=== PATIENT | female | born 1930 | race Caucasian/White ===

== ENCOUNTER 2016-06-14 09:14 | Inpatient (IN) | payer MEDICARE ==
[~2016-06-14] VITALS: Ht 165.1 cm; Wt 72.6 kg
[~2016-06-14 09:14] MED LIST: AMLO5TAB2 PO; APIX2.5T PO; ATOR10TA9 PO; LEVO100T5 PO; LEVO500T33 PO; LISI-170 PO; LISI5TAB7 PO; METO25TA35 PO; OMEP-110 PO; TEMA15CA6 PO
[2016-06-14] MEDS ORDERED: HYDROcodone/APAP 5/325 TABLET ONE (11:11)
[2016-06-14] MEDS ORDERED: SODIUM CHLORIDE 0.9% 1,000 ML IV ONE (11:12)
[2016-06-14] MEDS ORDERED: CEFAZOLIN PMX 1GM/50ML 50 ML IVPB ONE (11:30)
[2016-06-14] MEDS ORDERED: HYDROcodone/APAP 5/325 TABLET PO ONE ×2 (11:30)
[2016-06-14] MEDS ORDERED: SODIUM CHLORIDE FLUSH 10ML SYR IVF ONE (11:30)
[2016-06-14 12:13] LABS: BLOOD UREA NITROGEN 15 mg/dL (7-18)
[2016-06-14] MEDS ORDERED: CEFAZOLIN 1,000 MG ONE (13:12)
[2016-06-14] MEDS ORDERED: CEFAZOLIN PMX 1GM/50ML 50 ML ONE (13:13)
[2016-06-14] MEDS ORDERED: OMNIPAQUE 350 MG/ML, 100ML BOTTLE ONE ×2 (14:21)
[2016-06-14] MEDS ORDERED: ONDANSETRON ODT 4 MG PO PRN (14:30)
[2016-06-14] MEDS ORDERED: GUAIFENESIN/DM 200-20MG, 10ML UDC PO PRN (14:30)
[2016-06-14] MEDS ORDERED: LABETALOL 5MG/ML, 20ML IV PRN (14:30)
[2016-06-14] MEDS ORDERED: CEFAZOLIN PMX 2GM/100ML 100 ML IV SCH (15:00)
[2016-06-14 15:54] VITALS: BP 154/74
[2016-06-14] MEDS: CEFAZOLIN PMX 2GM/50ML 50 ML IV SCH (16:00)
[2016-06-14] MEDS: METOPROLOL TARTRATE 25 MG TABLET PO SCH (18:19)
[2016-06-14] MEDS: ATORVASTATIN 10 MG TABLET PO SCH (20:37)
[2016-06-14] MEDS: HYDROcodone/APAP 5/325 TABLET PO PRN (20:38)
[2016-06-14 20:51] VITALS: BP 154/69
[2016-06-15] MEDS: CEFAZOLIN PMX 2GM/50ML 50 ML IV SCH ×3 (00:39→18:03)
[2016-06-15 04:07] VITALS: BP 153/73
[2016-06-15 05:27] LABS: BLOOD UREA NITROGEN 14 mg/dL (7-18)
[2016-06-15 05:33] LABS: ASPARTATE AMINO TRANSFERASE 36 U/L (15-37)
[2016-06-15] MEDS: METOPROLOL TARTRATE 25 MG TABLET PO SCH ×3 (06:00→18:00)
[2016-06-15 06:35] VITALS: BP 155/73
[2016-06-15] MEDS: SENNA/DOCUSATE TABLET PO SCH (09:00)
[2016-06-15] MEDS: AMLODIPINE 5 MG TABLET PO SCH (10:07)
[2016-06-15] MEDS: LEVOTHYROXINE 100 MCG TABLET PO SCH (10:08)
[2016-06-15] MEDS: LISINOPRIL 20 MG TABLET PO SCH (10:08)
[2016-06-15 13:07] VITALS: BP 167/71
[2016-06-15] MEDS: D5%-0.9% NACL 1,000 ML IV SCH (13:16)
[2016-06-15] MEDS ORDERED: MORPHINE SULFATE 4 MG/ML, 1ML IVPush PRN (13:30)
[2016-06-15] MEDS ORDERED: FENTANYL PF 250 MCG/5ML ONE (15:23)
[2016-06-15] MEDS ORDERED: CEFAZOLIN 1,000 MG ONE (15:49)
[2016-06-15] MEDS ORDERED: ONDANSETRON 2MG/ML, 2ML ONE (15:49)
[2016-06-15] MEDS ORDERED: PROPOFOL 10 MG/ML, 20ML ONE (15:49)
[2016-06-15] MEDS ORDERED: DEXAMETHASONE 4 MG/ML, 1ML ONE (15:49)
[2016-06-15] MEDS ORDERED: BUPIVACAINE/PF-EPI 0.5% 1:200K ONE (16:23)
[2016-06-15] MEDS ORDERED: HYDROcodone/APAP 7.5-325MG/15ML UDC PO PRN (17:00)
[2016-06-15] MEDS ORDERED: LABETALOL 5MG/ML, 20ML IV PRN (17:00)
[2016-06-15] MEDS ORDERED: PROMETHAZINE 25 MG/ML, 1ML IV PRN (17:00)
[2016-06-15] MEDS ORDERED: EPHEDRINE 50 MG/ML, 1ML IVPush PRN (17:00)
[2016-06-15] MEDS ORDERED: ACETAMINOPHEN 325 MG TABLET PO PRN (17:00)
[2016-06-15] MEDS ORDERED: OXYcodone 5 MG/5 ML ORAL.SOL UDC PO PRN (17:00)
[2016-06-15] MEDS ORDERED: hydrALAzine 20 MG/ML, 1ML IV PRN (17:00)
[2016-06-15] MEDS ORDERED: ONDANSETRON 2MG/ML, 2ML IVPush PRN (17:00)
[2016-06-15 18:00] VITALS: BP 159/76
[2016-06-15 18:15] VITALS: BP 139/74
[2016-06-15] MEDS: HYDROcodone/APAP 5/325 TABLET PO PRN (18:15)
[2016-06-15] MEDS: ONDANSETRON 2MG/ML, 2ML IVP PRN (19:31)
[2016-06-15 19:43] VITALS: BP 123/69
[2016-06-15] MEDS: ATORVASTATIN 10 MG TABLET PO SCH (21:56)
[2016-06-16] MEDS: HYDROcodone/APAP 5/325 TABLET PO PRN ×3 (01:56→14:32)
[2016-06-16] MEDS: CEFAZOLIN PMX 2GM/50ML 50 ML IV SCH ×3 (01:59→17:51)
[2016-06-16 02:00] VITALS: BP 136/76
[2016-06-16] MEDS: METOPROLOL TARTRATE 25 MG TABLET PO SCH ×2 (05:47→17:51)
[2016-06-16] MEDS: LEVOTHYROXINE 100 MCG TABLET PO SCH (05:48)
[2016-06-16 06:37] LABS: ASPARTATE AMINO TRANSFERASE 20 U/L (15-37); BLOOD UREA NITROGEN 20 mg/dL (7-18)
[2016-06-16 07:15] VITALS: BP 158/70
[2016-06-16] MEDS: AMLODIPINE 5 MG TABLET PO SCH (08:28)
[2016-06-16] MEDS: D5%-0.9% NACL 1,000 ML IV SCH (08:28)
[2016-06-16] MEDS: SENNA/DOCUSATE TABLET PO SCH (08:29)
[2016-06-16] MEDS: LISINOPRIL 20 MG TABLET PO SCH (08:29)
[2016-06-16] MEDS: ONDANSETRON 2MG/ML, 2ML IVP PRN (10:24)
[2016-06-16 12:35] VITALS: BP 122/69
[2016-06-16 18:44] VITALS: BP 139/66
[2016-06-16] MEDS: DOXYCYCLINE 100MG TABLET PO SCH (22:19)
[2016-06-16] MEDS: ATORVASTATIN 10 MG TABLET PO SCH (22:19)
[2016-06-17 00:20] VITALS: BP 149/70
[2016-06-17] MEDS: HYDROcodone/APAP 5/325 TABLET PO PRN ×2 (01:11→23:57)
[2016-06-17] MEDS: DOXYCYCLINE 100MG TABLET PO SCH ×3 (01:11→22:22)
[2016-06-17] MEDS: ATORVASTATIN 10 MG TABLET PO SCH ×2 (01:11→22:22)
[2016-06-17] MEDS: LEVOTHYROXINE 100 MCG TABLET PO SCH (06:11)
[2016-06-17] MEDS: METOPROLOL TARTRATE 25 MG TABLET PO SCH ×2 (06:13→18:00)
[2016-06-17 06:33] LABS: ASPARTATE AMINO TRANSFERASE 16 U/L (15-37); BLOOD UREA NITROGEN 19 mg/dL (7-18)
[2016-06-17 07:02] VITALS: BP 122/66
[2016-06-17] MEDS ORDERED: FENTANYL PF 100 MCG/2ML ONE ×3 (09:25→17:31)
[2016-06-17] MEDS ORDERED: hydrALAzine 20 MG/ML, 1ML IV PRN ×2 (09:30→17:30)
[2016-06-17] MEDS ORDERED: HYDROcodone/APAP 7.5-325MG/15ML UDC PO PRN (09:30)
[2016-06-17] MEDS ORDERED: LABETALOL 5MG/ML, 20ML IV PRN ×2 (09:30→17:30)
[2016-06-17] MEDS ORDERED: FENTANYL PF 100 MCG/2ML IV PRN ×2 (09:30→17:30)
[2016-06-17] MEDS ORDERED: PROMETHAZINE 25 MG/ML, 1ML IV PRN ×2 (09:30→17:30)
[2016-06-17] MEDS ORDERED: OXYcodone 5 MG/5 ML ORAL.SOL UDC PO PRN ×2 (09:30→17:30)
[2016-06-17] MEDS ORDERED: HYDROmorphone 1 MG/ML, 1ML IV PRN ×2 (09:30→17:30)
[2016-06-17] MEDS ORDERED: EPHEDRINE 50 MG/ML, 1ML IVPush PRN ×2 (09:30→17:30)
[2016-06-17] MEDS ORDERED: ONDANSETRON 2MG/ML, 2ML IVPush PRN ×2 (09:30→17:30)
[2016-06-17] MEDS: LISINOPRIL 20 MG TABLET PO SCH (10:45)
[2016-06-17] MEDS: AMLODIPINE 5 MG TABLET PO SCH (10:45)
[2016-06-17] MEDS: SENNA/DOCUSATE TABLET PO SCH (10:45)
[2016-06-17 12:54] VITALS: BP 127/74
[2016-06-17] MEDS: ONDANSETRON 2MG/ML, 2ML IVP PRN (13:21)
[2016-06-17] MEDS ORDERED: BUPIVACAINE/PF-EPI 0.25% 1:200K ONE (15:36)
[2016-06-17] MEDS ORDERED: FENTANYL PF 250 MCG/5ML ONE (16:05)
[2016-06-17] MEDS ORDERED: ONDANSETRON 2MG/ML, 2ML ONE (16:07)
[2016-06-17] MEDS ORDERED: PHENYLEPHRINE 10 MG/ML ONE (16:07)
[2016-06-17] MEDS ORDERED: PROPOFOL 10 MG/ML, 20ML ONE (16:07)
[2016-06-17] MEDS ORDERED: HYDROmorphone 2 MG/ML, 1ML ONE (17:00)
[2016-06-17] MEDS: FENTANYL PF 100 MCG/2ML IV PRN ×3 (17:05→17:35)
[2016-06-17] MEDS: HYDROmorphone 1 MG/ML, 1ML IV PRN ×4 (17:05→17:48)
[2016-06-17] MEDS ORDERED: MEPERIDINE/PF 25MG/0.5ML IVPush PRN (17:30)
[2016-06-17] MEDS ORDERED: ACETAMINOPHEN 325 MG TABLET PO PRN (17:30)
[2016-06-17] MEDS ORDERED: METOPROLOL 1 MG/ML, 5ML IV PRN (17:30)
[2016-06-17] MEDS ORDERED: MIDAZOLAM 1 MG/ML, 2ML IV PRN (17:30)
[2016-06-18 04:15] VITALS: BP 132/71
[2016-06-18] MEDS: METOPROLOL TARTRATE 25 MG TABLET PO SCH ×2 (06:26→18:24)
[2016-06-18] MEDS: LEVOTHYROXINE 100 MCG TABLET PO SCH (06:26)
[2016-06-18 07:39] VITALS: BP 108/72
[2016-06-18] MEDS: DOXYCYCLINE 100MG TABLET PO SCH ×2 (09:24→20:30)
[2016-06-18] MEDS: LISINOPRIL 20 MG TABLET PO SCH (09:24)
[2016-06-18] MEDS: AMLODIPINE 5 MG TABLET PO SCH (09:24)
[2016-06-18] MEDS: SENNA/DOCUSATE TABLET PO SCH (09:24)
[2016-06-18 12:52] VITALS: BP 115/73
[2016-06-18] MEDS ORDERED: POLYETHYLENE GLYCOL 17 GM PACKET PO ONE (14:00)
[2016-06-18 19:39] VITALS: BP 130/81
[2016-06-18 19:46] VITALS: BP 126/71
[2016-06-18] MEDS: ATORVASTATIN 10 MG TABLET PO SCH (20:30)
[2016-06-18] MEDS: HYDROcodone/APAP 5/325 TABLET PO PRN (20:31)
[2016-06-19] MEDS: HYDROcodone/APAP 5/325 TABLET PO PRN ×3 (00:53→10:13)
[2016-06-19 02:07] VITALS: BP 134/70
[2016-06-19 05:39] VITALS: BP 147/62
[2016-06-19] MEDS: LEVOTHYROXINE 100 MCG TABLET PO SCH (05:42)
[2016-06-19] MEDS: METOPROLOL TARTRATE 25 MG TABLET PO SCH ×2 (05:42→18:07)
[2016-06-19 05:51] LABS: ASPARTATE AMINO TRANSFERASE 20 U/L (15-37); BLOOD UREA NITROGEN 26 mg/dL (7-18)
[2016-06-19 07:54] VITALS: BP 114/61
[2016-06-19] MEDS: AMLODIPINE 5 MG TABLET PO SCH (08:33)
[2016-06-19] MEDS: LISINOPRIL 20 MG TABLET PO SCH (08:33)
[2016-06-19] MEDS: SENNA/DOCUSATE TABLET PO SCH (08:33)
[2016-06-19] MEDS: POLYETHYLENE GLYCOL 17 GM PACKET PO PRN (08:33)
[2016-06-19] MEDS: DOXYCYCLINE 100MG TABLET PO SCH ×2 (08:33→23:07)
[2016-06-19 13:58] VITALS: BP 164/77
[2016-06-19 15:00] VITALS: BP 153/72
[2016-06-19] MEDS: MAGNESIUM HYDROXIDE 8%, 30ML UDC PO SCH (15:57)
[2016-06-19] MEDS ORDERED: SODIUM CHLORIDE 0.9%, 500ML IVBOLUS ONE (16:00)
[2016-06-19 20:00] VITALS: BP 170/82
[2016-06-19] MEDS: ATORVASTATIN 10 MG TABLET PO SCH (23:06)
[2016-06-20] VITALS: BP 150/71
[2016-06-20] MEDS: HYDROcodone/APAP 5/325 TABLET PO PRN ×3 (00:17→13:45)
[2016-06-20 05:05] LABS: BLOOD UREA NITROGEN 17 mg/dL (7-18)
[2016-06-20 06:15] VITALS: BP 155/77
[2016-06-20] MEDS: METOPROLOL TARTRATE 25 MG TABLET PO SCH ×2 (06:16→17:03)
[2016-06-20] MEDS: LEVOTHYROXINE 100 MCG TABLET PO SCH (06:16)
[2016-06-20 07:30] VITALS: BP 164/75
[2016-06-20] MEDS: MAGNESIUM HYDROXIDE 8%, 30ML UDC PO SCH (08:02)
[2016-06-20] MEDS: SENNA/DOCUSATE TABLET PO SCH (08:02)
[2016-06-20] MEDS: AMLODIPINE 5 MG TABLET PO SCH (08:02)
[2016-06-20] MEDS: DOXYCYCLINE 100MG TABLET PO SCH ×2 (08:02→20:02)
[2016-06-20] MEDS: LISINOPRIL 20 MG TABLET PO SCH (08:02)
[2016-06-20 12:17] VITALS: BP 143/76
[2016-06-20] MEDS: ENOXAPARIN 40 MG/0.4 ML SQ SCH (17:00)
[2016-06-20 19:10] VITALS: BP 139/71
[2016-06-20] MEDS: ATORVASTATIN 10 MG TABLET PO SCH (20:02)
[2016-06-21 01:24] VITALS: BP 133/68
[2016-06-21 05:04] LABS: BLOOD UREA NITROGEN 13 mg/dL (7-18)
[2016-06-21 05:10] LABS: ASPARTATE AMINO TRANSFERASE 29 U/L (15-37)
[2016-06-21 05:32] VITALS: BP 161/75
[2016-06-21] MEDS: LEVOTHYROXINE 100 MCG TABLET PO SCH (05:34)
[2016-06-21] MEDS: METOPROLOL TARTRATE 25 MG TABLET PO SCH ×2 (05:34→16:52)
[2016-06-21 07:05] VITALS: BP 148/74
[2016-06-21] MEDS: SENNA/DOCUSATE TABLET PO SCH (08:01)
[2016-06-21] MEDS: AMLODIPINE 5 MG TABLET PO SCH (08:02)
[2016-06-21] MEDS: DOXYCYCLINE 100MG TABLET PO SCH ×2 (08:02→20:20)
[2016-06-21] MEDS: MAGNESIUM HYDROXIDE 8%, 30ML UDC PO SCH (08:02)
[2016-06-21] MEDS: LISINOPRIL 20 MG TABLET PO SCH (08:02)
[2016-06-21 13:06] VITALS: BP 149/79
[2016-06-21] MEDS: ENOXAPARIN 40 MG/0.4 ML SQ SCH (16:52)
[2016-06-21 19:46] VITALS: BP 130/68
[2016-06-21] MEDS: ATORVASTATIN 10 MG TABLET PO SCH (20:20)
[2016-06-22 01:22] VITALS: BP 143/75
[2016-06-22 06:04] LABS: BLOOD UREA NITROGEN 17 mg/dL (7-18)
[2016-06-22 06:07] LABS: ASPARTATE AMINO TRANSFERASE 17 U/L (15-37)
[2016-06-22] MEDS: METOPROLOL TARTRATE 25 MG TABLET PO SCH ×2 (06:16→18:17)
[2016-06-22] MEDS: POLYETHYLENE GLYCOL 17 GM PACKET PO PRN (06:17)
[2016-06-22] MEDS: LEVOTHYROXINE 100 MCG TABLET PO SCH (06:17)
[2016-06-22 07:15] VITALS: BP 135/74
[2016-06-22] MEDS: MAGNESIUM HYDROXIDE 8%, 30ML UDC PO SCH (09:00)
[2016-06-22] MEDS: SENNA/DOCUSATE TABLET PO SCH (09:00)
[2016-06-22] MEDS: LISINOPRIL 20 MG TABLET PO SCH (09:13)
[2016-06-22] MEDS: DOXYCYCLINE 100MG TABLET PO SCH ×2 (09:13→21:13)
[2016-06-22] MEDS: AMLODIPINE 5 MG TABLET PO SCH (09:30)
[2016-06-22 18:02] VITALS: BP 129/65
[2016-06-22 20:22] VITALS: BP 154/76
[2016-06-22] MEDS: ATORVASTATIN 10 MG TABLET PO SCH (21:12)
[2016-06-22] MEDS: APIXABAN 5 MG TABLET PO SCH (21:13)
[2016-06-23 01:41] VITALS: BP 152/78
[2016-06-23 06:04] LABS: BLOOD UREA NITROGEN 16 mg/dL (7-18)
[2016-06-23] MEDS: LEVOTHYROXINE 100 MCG TABLET PO SCH (06:26)
[2016-06-23] MEDS: METOPROLOL TARTRATE 25 MG TABLET PO SCH (06:26)
[2016-06-23 07:28] VITALS: BP 126/72
[2016-06-23] MEDS: SENNA/DOCUSATE TABLET PO SCH (09:00)
[2016-06-23] MEDS: MAGNESIUM HYDROXIDE 8%, 30ML UDC PO SCH (09:00)
[2016-06-23] MEDS: AMLODIPINE 5 MG TABLET PO SCH (09:10)
[2016-06-23] MEDS: LISINOPRIL 20 MG TABLET PO SCH (09:11)
[2016-06-23] MEDS: DOXYCYCLINE 100MG TABLET PO SCH (09:11)
[2016-06-23] MEDS: APIXABAN 5 MG TABLET PO SCH (09:11)
[2016-06-23] MEDS ORDERED: FUROSEMIDE 20 MG/2 ML IV ONE (11:00)
[2016-06-23] MEDS ORDERED: TRAM50TA2 PO (12:32)
[2016-06-23 13:36] VITALS: BP 157/75
== END 2016-06-23 15:55 | disposition home health service (06) | DRG 570 ==
LOC: ED 11:02 → EDIP 14:26 → 4EST 15:28 → DCLOUNGE 06-23 15:05
PROVIDERS: ADMIT Hospitalist; ATTEND Hospitalist
PROC: 0JCP0ZZ Extirpation of Matter from Left Lower Leg Subcutaneous Tissue and Fascia, Open Approach (ICD-10-PCS; 2016-06-15)
PROC: 0JBP0ZZ Excision of Left Lower Leg Subcutaneous Tissue and Fascia, Open Approach (ICD-10-PCS; principal; 2016-06-15 15:30)
PROC: 0JBP0ZZ Excision of Left Lower Leg Subcutaneous Tissue and Fascia, Open Approach (ICD-10-PCS; 2016-06-17)
DX: L03.116 Cellulitis of left lower limb (principal); E43 Unspecified severe protein-calorie malnutrition; D68.9 Coagulation defect, unspecified; D68.69 Other thrombophilia; S80.02XA Contusion of left knee, initial encounter; Z68.26 Body mass index [BMI] 26.0-26.9, adult; D64.9 Anemia, unspecified; E03.9 Hypothyroidism, unspecified; I10 Essential (primary) hypertension; I48.0 Paroxysmal atrial fibrillation; K21.9 Gastro-esophageal reflux disease without esophagitis; K57.30 Diverticulosis of large intestine without perforation or abscess without bleeding; S20.219A Contusion of unspecified front wall of thorax, initial encounter; S30.1XXA Contusion of abdominal wall, initial encounter; Z79.01 Long term (current) use of anticoagulants; Z86.73 Personal history of transient ischemic attack (TIA), and cerebral infarction without residual deficits; Z88.0 Allergy status to penicillin; Z90.710 Acquired absence of both cervix and uterus
CPT/HCPCS: 36415; 70450; 71010; 74177; 80048; 80053; 81003; 82040; 83605; 83735; 84100; 84439; 84443; 85014; 85018; 85025; 85610; 85651; 87040; 87070; 87075; 87102; 87176; 87205; 93005; 96365; J0690; J1100; J1170; J2405; J2704; J3010; J7042; Q9967; J1940; J2370; J7030; J7040

== ENCOUNTER 2016-07-10 12:30 | Emergency (ER) | payer MEDICARE ==
[~2016-07-10] VITALS: Ht 167.6 cm; Wt 65.0 kg
[~2016-07-10 12:30] MED LIST changes: +TRAM50TA2 PO
[2016-07-10] MEDS ORDERED: SODIUM CHLORIDE FLUSH 10ML SYR IVF ONE (13:30)
[2016-07-10 13:34] VITALS: BP 138/78
[2016-07-10 14:01] LABS: ASPARTATE AMINO TRANSFERASE 21 U/L (15-37); BLOOD UREA NITROGEN 10 mg/dL (7-18)
== END 2016-07-10 16:07 | disposition home or self-care (01) ==
LOC: ED 13:15
DX: R05 Cough (principal); D50.9 Iron deficiency anemia, unspecified; E83.51 Hypocalcemia; E87.1 Hypo-osmolality and hyponatremia; E87.8 Other disorders of electrolyte and fluid balance, not elsewhere classified; R80.9 Proteinuria, unspecified; I10 Essential (primary) hypertension; K21.9 Gastro-esophageal reflux disease without esophagitis; I48.91 Unspecified atrial fibrillation; Z86.73 Personal history of transient ischemic attack (TIA), and cerebral infarction without residual deficits; Z88.0 Allergy status to penicillin; Z88.1 Allergy status to other antibiotic agents
CPT/HCPCS: 36415; 71010; 80053; 81001; 83690; 85025; 85610; 93005; 99285

== ENCOUNTER 2016-08-01 09:38 | Inpatient (IN) | payer MEDICARE ==
[~2016-08-01] VITALS: Ht 165.1 cm; Wt 58.0 kg
[2016-08-01] MEDS ORDERED: SODIUM CHLORIDE 0.9% 1,000ML IVBOLUS ONE ×2 (10:30→12:30)
[2016-08-01] MEDS ORDERED: SODIUM CHLORIDE FLUSH 10ML SYR IVF ONE (10:30)
[2016-08-01 10:57] LABS: BLOOD UREA NITROGEN 13 mg/dL (7-18)
[2016-08-01 11:01] LABS: IS PT STATUS REG ER OR PRE ER? YES
[2016-08-01] MEDS ORDERED: AZITHROMYCIN 500 MG in SODIUM CHLORIDE 0.9% 250 ML IVPB ONE (14:00)
[2016-08-01] MEDS ORDERED: SODIUM CHLORIDE FLUSH 10ML SYR IVF PRN (14:00)
[2016-08-01] MEDS ORDERED: CEFTRIAXONE PMX 1GM/50ML 50 ML IVPB ONE (14:00)
[2016-08-01] MEDS ORDERED: SODIUM CHLORIDE 0.9% 1,000 ML IV SCH (14:06)
[2016-08-01] MEDS ORDERED: VANCOMYCIN PER PHARMACY MC PRN (14:30)
[2016-08-01] MEDS ORDERED: ONDANSETRON 2MG/ML, 2ML IVPush PRN (14:30)
[2016-08-01] MEDS ORDERED: ONDANSETRON ODT 4 MG PO PRN (14:30)
[2016-08-01] MEDS ORDERED: ACETAMINOPHEN 325 MG TABLET PO PRN (14:30)
[2016-08-01 15:09] LABS: IS PT STATUS REG ER OR PRE ER? YES
[2016-08-01 16:00] VITALS: BP 127/68
[2016-08-01] MEDS ORDERED: PHARMACOKINETIC MONITORING MC PRN (16:30)
[2016-08-01] MEDS ORDERED: VANCOMYCIN PMX 1GM/200ML 200 ML IV SCH (16:30)
[2016-08-01] MEDS ORDERED: VANCOMYCIN 1,400 MG in SODIUM CHLORIDE 0.9% 250 ML IV SCH (16:30)
[2016-08-01] MEDS ORDERED: PHARMACOKINETIC CONSULTATION MC ONE (16:30)
[2016-08-01] MEDS: LEVOFLOXACIN/PMX 750MG/150ML 150 ML IV SCH (17:44)
[2016-08-01] MEDS: METOPROLOL TARTRATE 25 MG TABLET PO SCH (18:41)
[2016-08-01 19:12] VITALS: BP 118/70
[2016-08-01 20:38] LABS: IS PT STATUS REG ER OR PRE ER? NO
[2016-08-01] MEDS: APIXABAN 2.5 MG TABLET PO SCH (20:57)
[2016-08-01] MEDS: ATORVASTATIN 10 MG TABLET PO SCH (20:57)
[2016-08-01] MEDS ORDERED: DIPHENHYDRAMINE 12.5MG/5ML, 10ML UDC PO PRN (22:30)
[2016-08-01] MEDS ORDERED: DIPHENHYDRAMINE 25 MG CAPSULE PO PRN (22:30)
[2016-08-02 03:39] VITALS: BP 128/71
[2016-08-02 05:02] LABS: BLOOD UREA NITROGEN 20 mg/dL (7-18)
[2016-08-02 05:12] LABS: ASPARTATE AMINO TRANSFERASE 15 U/L (15-37)
[2016-08-02] MEDS: METOPROLOL TARTRATE 25 MG TABLET PO SCH ×3 (06:00→17:18)
[2016-08-02 06:45] VITALS: BP 114/66
[2016-08-02] MEDS: APIXABAN 2.5 MG TABLET PO SCH ×2 (08:35→21:55)
[2016-08-02] MEDS: LEVOTHYROXINE 100 MCG TABLET PO SCH (08:35)
[2016-08-02] MEDS: LISINOPRIL 20 MG TABLET PO SCH (08:38)
[2016-08-02] MEDS ORDERED: AMLODIPINE 5 MG TABLET PO SCH (09:00)
[2016-08-02 13:09] VITALS: BP 126/61
[2016-08-02] MEDS: LEVOFLOXACIN/PMX 750MG/150ML 150 ML IV SCH (17:18)
[2016-08-02 19:35] VITALS: BP 126/68
[2016-08-02] MEDS: ATORVASTATIN 10 MG TABLET PO SCH (21:55)
[2016-08-02] MEDS ORDERED: VANCOMYCIN 1,200 MG in SODIUM CHLORIDE 0.9% 250 ML IV SCH (22:00)
[2016-08-02] MEDS ORDERED: IBUPROFEN 200 MG TABLET PO PRN (23:00)
[2016-08-03 01:14] VITALS: BP 141/75
[2016-08-03 05:20] LABS: BLOOD UREA NITROGEN 12 mg/dL (7-18)
[2016-08-03] MEDS: METOPROLOL TARTRATE 25 MG TABLET PO SCH (05:33)
[2016-08-03] MEDS: LEVOTHYROXINE 100 MCG TABLET PO SCH (05:34)
[2016-08-03 07:21] VITALS: BP 139/78
[2016-08-03] MEDS: APIXABAN 2.5 MG TABLET PO SCH (09:10)
[2016-08-03] MEDS: LISINOPRIL 20 MG TABLET PO SCH (09:10)
[2016-08-03 13:26] VITALS: BP 131/71
[2016-08-03] MEDS ORDERED: LEVO750T26 PO (14:10)
== END 2016-08-03 16:14 | disposition home or self-care (01) | DRG 291 ==
LOC: ED 11:56 → EDIP 14:00 → 4WST 15:59
PROVIDERS: ADMIT Family Medicine; ATTEND Family Medicine
DX: I11.0 Hypertensive heart disease with heart failure (principal); J18.9 Pneumonia, unspecified organism; E43 Unspecified severe protein-calorie malnutrition; D68.69 Other thrombophilia; I50.32 Chronic diastolic (congestive) heart failure; D64.9 Anemia, unspecified; E03.9 Hypothyroidism, unspecified; E86.0 Dehydration; I48.2 Chronic atrial fibrillation; K21.9 Gastro-esophageal reflux disease without esophagitis; R09.02 Hypoxemia; S80.10XA Contusion of unspecified lower leg, initial encounter; R73.9 Hyperglycemia, unspecified; Y95 Nosocomial condition; D72.829 Elevated white blood cell count, unspecified; X58.XXXA Exposure to other specified factors, initial encounter; Z79.01 Long term (current) use of anticoagulants; Z86.73 Personal history of transient ischemic attack (TIA), and cerebral infarction without residual deficits; Z88.0 Allergy status to penicillin; Z99.81 Dependence on supplemental oxygen; Z90.710 Acquired absence of both cervix and uterus; Z90.49 Acquired absence of other specified parts of digestive tract; Y93.89 Activity, other specified; Y92.89 Other specified places as the place of occurrence of the external cause; Y99.8 Other external cause status; Z88.2 Allergy status to sulfonamides; Z68.21 Body mass index [BMI] 21.0-21.9, adult
CPT/HCPCS: 36415; 70450; 71010; 80048; 80053; 80061; 82040; 83605; 83735; 84100; 84145; 84443; 84484; 85025; 87040; 93005; 93306; 99285; J1956; J3370; J7030; J7050

== ENCOUNTER → 2016-12-03 | Outpatient (CLI) | payer MEDICARE ==
[~2016-12-03] MED LIST changes: +IBUP200T64 PO; -LEVO500T33 PO; +LEVO500T47 PO; +LEVO750T26 PO
[2016-12-03 11:59] LABS: ASPARTATE AMINO TRANSFERASE 14 U/L (15-37); BLOOD UREA NITROGEN 20 mg/dL (7-18)
== END | disposition home or self-care (01) ==
LOC: STAR 10:44
PROVIDERS: ATTEND Surgery
DX: Z01.818 Encounter for other preprocedural examination (principal); R94.31 Abnormal electrocardiogram [ECG] [EKG]; L97.922 Non-pressure chronic ulcer of unspecified part of left lower leg with fat layer exposed; Z98.890 Other specified postprocedural states
CPT/HCPCS: 36415; 80053; 93005

== ENCOUNTER → 2017-02-18 | Outpatient (CLI) | payer MEDICARE ==
[~2017-02-18] MED LIST changes: +FURO-93 PO; +POTA20TA6 PO
== END ==
LOC: CFH 12:33
PROVIDERS: ATTEND Nurse Practitioner Family
DX: J98.6 Disorders of diaphragm (principal); I10 Essential (primary) hypertension; I51.7 Cardiomegaly; I27.29 Other secondary pulmonary hypertension; I48.91 Unspecified atrial fibrillation; I50.33 Acute on chronic diastolic (congestive) heart failure; R06.00 Dyspnea, unspecified; R60.9 Edema, unspecified; R91.8 Other nonspecific abnormal finding of lung field; Z79.01 Long term (current) use of anticoagulants
CPT/HCPCS: 71046

== ENCOUNTER → 2017-02-27 | Outpatient (CLI) | payer MEDICARE ==
[~2017-02-27] MED LIST changes: +FURO40TA6 PO; +MULT-6 PO
== END | disposition home or self-care (01) ==
LOC: RAD 13:36
PROVIDERS: ATTEND Nurse Practitioner Family
DX: J90 Pleural effusion, not elsewhere classified (principal); I51.7 Cardiomegaly; J98.6 Disorders of diaphragm
CPT/HCPCS: 71046

== ENCOUNTER 2017-03-13 18:07 | Emergency (ER) | payer MEDICARE ==
[~2017-03-13] VITALS: Ht 165.1 cm; Wt 72.3 kg
[2017-03-13 18:12] VITALS: BP 155/80
[2017-03-13] MEDS ORDERED: CEFTRIAXONE 1,000 MG ONE (18:53)
[2017-03-13] MEDS ORDERED: CEFTRIAXONE 1,000 MG IM ONE (19:00)
[2017-03-13] MEDS ORDERED: BACITRACIN ZINC OINT 500U/GM, 0.9 GM ONE (19:02)
== END 2017-03-13 20:58 | disposition home or self-care (01) ==
LOC: ED 19:45
DX: L03.115 Cellulitis of right lower limb (principal); I87.8 Other specified disorders of veins; L98.491 Non-pressure chronic ulcer of skin of other sites limited to breakdown of skin; I10 Essential (primary) hypertension; I48.91 Unspecified atrial fibrillation; Z86.73 Personal history of transient ischemic attack (TIA), and cerebral infarction without residual deficits; Z90.710 Acquired absence of both cervix and uterus
CPT/HCPCS: 93971; 96372; 99284; J0696

== ENCOUNTER 2017-04-30 12:02 | Inpatient (IN) | payer MEDICARE ==
[~2017-04-30] VITALS: Ht 162.6 cm; Wt 73.7 kg
[2017-04-30] MEDS ORDERED: SPIR25TA3 PO (12:37)
[2017-04-30] MEDS ORDERED: SERT25TA3 PO (12:37)
[2017-04-30] MEDS ORDERED: FUROSEMIDE 40 MG/4 ML ONE (12:59)
[2017-04-30] MEDS ORDERED: FUROSEMIDE 40 MG/4 ML IV ONE (13:00)
[2017-04-30 13:07] LABS: ALBUMIN 3.6 g/dL (3.4-5.0); ANION GAP 8 mmol/L (5-15); CALCIUM 8.7 mg/dL (8.5-10.1); CHLORIDE 95 mmol/L (98-107)
[2017-04-30 13:10] LABS: MEAN CORPUSCULAR HEMOGLOBIN 25.4 pg (27.0-34.8); MEAN CORPUSCULAR HGB CONC 31.2 g/dL (32.4-35.8); MEAN CORPUSCULAR VOLUME 81.4 fL (80-100); MEAN PLATELET VOLUME 9.4 fL (7.4-10.4); PLATELET COUNT 150 x10^3/uL (130-400); RED CELL DISTRIBUTION WIDTH 20.7 % (9.6-15.2)
[2017-04-30 13:13] LABS: ALANINE AMINOTRANSFERASE 33 U/L (12-78); ALKALINE PHOSPHATASE 151 U/L (45-117); BILIRUBIN,TOTAL 1.5 mg/dL (0.2-1.0); CREATININE 1.03 mg/dL (0.55-1.02); TOTAL PROTEIN 7.3 g/dL (6.4-8.2); TROPONIN I 0.038 ng/mL (0.000-0.045)
[2017-04-30 13:54] LABS: ANISOCYTOSIS 1+; BASOPHILS % (AUTO) 0 % (0-1); EOSINOPHILS % (AUTO) 0 % (1-7); LYMPHOCYTES # (AUTO) 0.45 x10^3/uL (1-3.4); LYMPHOCYTES % (AUTO) 8 % (22-44); MD MORPH REVIEW ONLY; MONOCYTES # (AUTO) 0.45 x10^3/uL (0.2-0.8); MONOCYTES % (AUTO) 8 % (2-9); NEUTROPHILS # (AUTO) 5.01 x10^3/uL (1.8-6.8); NEUTROPHILS % (AUTO) 85 % (42-75); OVALOCYTES 1+
[2017-04-30 13:56] LABS: <PLATELET ESTIMATE> ADEQUATE; LARGE PLATELETS 1+
[2017-04-30 14:15] LABS: MICROSCOPIC INDICATED
[2017-04-30 14:47] LABS: CULTURE INDICATED? NO
[2017-04-30] MEDS ORDERED: OMNIPAQUE 350 MG/ML, 100ML BOTTLE ONE (16:44)
[2017-04-30] MEDS ORDERED: ONDANSETRON 2MG/ML, 2ML IVPush PRN (18:30)
[2017-04-30] MEDS ORDERED: POLYETHYLENE GLYCOL 17 GM PACKET PO PRN (18:30)
[2017-04-30] MEDS ORDERED: BISACODYL 10 MG SUPP PR PRN (18:30)
[2017-04-30 18:42] LABS: HEMOGLOBIN A1C 7.3 % (4.2-6.3)
[2017-04-30 19:45] VITALS: BP 160/90
[2017-04-30] MEDS: SODIUM CHLORIDE FLUSH 10ML SYR IVF SCH (21:47)
[2017-04-30] MEDS: ATORVASTATIN 10 MG TABLET PO SCH (21:48)
[2017-04-30] MEDS: SERTRALINE 50MG TABLET PO SCH (21:48)
[2017-04-30] MEDS: APIXABAN 2.5 MG TABLET PO SCH (21:48)
[2017-04-30] MEDS: ACETAMINOPHEN 325 MG TABLET PO PRN (21:48)
[2017-04-30] MEDS: METOPROLOL TARTRATE 25 MG TABLET PO SCH (21:49)
[2017-05-01 00:20] VITALS: BP 124/76
[2017-05-01 06:05] LABS: ALBUMIN 3.2 g/dL (3.4-5.0); ANION GAP 10 mmol/L (5-15); CALCIUM 8.5 mg/dL (8.5-10.1); CHLORIDE 96 mmol/L (98-107)
[2017-05-01 06:09] LABS: ALANINE AMINOTRANSFERASE 33 U/L (12-78); ALKALINE PHOSPHATASE 141 U/L (45-117); BILIRUBIN,TOTAL 1.2 mg/dL (0.2-1.0); CREATININE 0.95 mg/dL (0.55-1.02); TOTAL PROTEIN 6.2 g/dL (6.4-8.2)
[2017-05-01 06:20] LABS: MEAN CORPUSCULAR HEMOGLOBIN 25.7 pg (27.0-34.8); MEAN CORPUSCULAR HGB CONC 31.7 g/dL (32.4-35.8); MEAN CORPUSCULAR VOLUME 81.1 fL (80-100); RED BLOOD COUNT 5.03 x10^6/uL (3.82-5.3); RED CELL DISTRIBUTION WIDTH 20.5 % (9.6-15.2)
[2017-05-01 06:53] VITALS: BP 138/82
[2017-05-01 07:20] LABS: MEAN PLATELET VOLUME 9.4 fL (7.4-10.4); PLATELET COUNT 117 x10^3/uL (130-400)
[2017-05-01 07:22] LABS: MD YES
[2017-05-01 07:24] LABS: BAND#(MANUAL) 0.06 x10^3/uL; BANDS%(MANUAL) 1 % (0-7); LYMPH#(MANUAL) 0.83 x10^3/uL (1-3.4); LYMPHS% (MANUAL) 14 % (22-44); MONOS#(MANUAL) 0.47 x10^3/uL (0.3-2.7); MONOS% (MANUAL) 8 % (2-9); NRBC % (MANUAL) 1 % (0-1); SEG#(MANUAL) 4.54 x10^3/uL (1.8-6.8); SEGS% (MANUAL) 77 % (42-75)
[2017-05-01 07:25] LABS: ANISOCYTOSIS 2+
[2017-05-01 07:26] LABS: OVALOCYTES 1+; POLYCHROMASIA 1+; SCHISTOCYTES 1+
[2017-05-01 07:28] LABS: <PLATELET ESTIMATE> DECREASED; <PLT MORPHOLOGY> NORMAL PLT MORPH; TARGET CELLS 1+
[2017-05-01] MEDS ORDERED: LEVOTHYROXINE 100 MCG TABLET PO SCH (09:00)
[2017-05-01] MEDS: SENNA/DOCUSATE TABLET PO SCH (09:00)
[2017-05-01] MEDS: METOPROLOL TARTRATE 25 MG TABLET PO SCH ×2 (09:12→21:19)
[2017-05-01] MEDS: FUROSEMIDE 20 MG/2 ML IV SCH ×2 (09:12→17:31)
[2017-05-01] MEDS: POTASSIUM CHLORIDE 20 MEQ TAB.ER.PRT PO SCH (09:12)
[2017-05-01] MEDS: SODIUM CHLORIDE FLUSH 10ML SYR IVF SCH ×2 (09:12→21:18)
[2017-05-01] MEDS: MULTIVITAMIN 1 TABLET PO SCH (09:12)
[2017-05-01] MEDS: APIXABAN 2.5 MG TABLET PO SCH ×2 (09:13→21:19)
[2017-05-01] MEDS: SPIRONOLACTONE 25 MG TABLET PO SCH (09:16)
[2017-05-01 13:00] VITALS: BP 115/80
[2017-05-01 18:50] VITALS: BP 132/96
[2017-05-01] MEDS: ATORVASTATIN 10 MG TABLET PO SCH (21:19)
[2017-05-01] MEDS: SERTRALINE 50MG TABLET PO SCH (21:19)
[2017-05-01] MEDS: ACETAMINOPHEN 325 MG TABLET PO PRN (22:55)
[2017-05-02 02:36] VITALS: BP 125/86
[2017-05-02 05:18] LABS: BASOPHILS % (AUTO) 0 % (0-1); EOSINOPHILS # (AUTO) 0.01 x10^3/uL (0-0.4); EOSINOPHILS % (AUTO) 0 % (1-7); LYMPHOCYTES % (AUTO) 8 % (22-44); MD NO; MEAN CORPUSCULAR HEMOGLOBIN 25.8 pg (27.0-34.8); MEAN CORPUSCULAR HGB CONC 31.4 g/dL (32.4-35.8); MEAN CORPUSCULAR VOLUME 82.2 fL (80-100); MEAN PLATELET VOLUME 8.8 fL (7.4-10.4); MONOCYTES # (AUTO) 0.54 x10^3/uL (0.2-0.8); MONOCYTES % (AUTO) 9 % (2-9); NEUTROPHILS # (AUTO) 4.97 x10^3/uL (1.8-6.8); NEUTROPHILS % (AUTO) 83 % (42-75); PLATELET COUNT 129 x10^3/uL (130-400); RED BLOOD COUNT 4.78 x10^6/uL (3.82-5.3); RED CELL DISTRIBUTION WIDTH 20.8 % (9.6-15.2)
[2017-05-02 05:30] LABS: CALCIUM 8.4 mg/dL (8.5-10.1); CHLORIDE 98 mmol/L (98-107)
[2017-05-02 05:34] LABS: ANION GAP 5 mmol/L (5-15); CREATININE 1.07 mg/dL (0.55-1.02)
[2017-05-02] MEDS: LEVOTHYROXINE 125 MCG TABLET PO SCH (06:12)
[2017-05-02 07:50] VITALS: BP 134/88
[2017-05-02] MEDS: SODIUM CHLORIDE FLUSH 10ML SYR IVF SCH ×2 (08:36→20:53)
[2017-05-02] MEDS: POTASSIUM CHLORIDE 20 MEQ TAB.ER.PRT PO SCH (08:36)
[2017-05-02] MEDS: FUROSEMIDE 20 MG/2 ML IV SCH ×2 (08:36→17:18)
[2017-05-02] MEDS: APIXABAN 2.5 MG TABLET PO SCH ×2 (08:37→20:50)
[2017-05-02] MEDS: MULTIVITAMIN 1 TABLET PO SCH (08:37)
[2017-05-02] MEDS: METOPROLOL TARTRATE 25 MG TABLET PO SCH ×2 (08:37→20:51)
[2017-05-02] MEDS: SPIRONOLACTONE 25 MG TABLET PO SCH (08:37)
[2017-05-02] MEDS: SENNA/DOCUSATE TABLET PO SCH (08:37)
[2017-05-02 14:00] VITALS: BP 129/81
[2017-05-02 18:47] VITALS: BP 116/77
[2017-05-02] MEDS: ATORVASTATIN 10 MG TABLET PO SCH (20:50)
[2017-05-02] MEDS: SERTRALINE 50MG TABLET PO SCH (20:50)
[2017-05-03 01:00] VITALS: BP 115/76
[2017-05-03 05:11] LABS: BASOPHILS # (AUTO) 0.01 x10^3/uL (0-0.1); BASOPHILS % (AUTO) 0 % (0-1); EOSINOPHILS # (AUTO) 0.03 x10^3/uL (0-0.4); EOSINOPHILS % (AUTO) 0 % (1-7); LYMPHOCYTES # (AUTO) 0.59 x10^3/uL (1-3.4); LYMPHOCYTES % (AUTO) 8 % (22-44); MD NO; MEAN CORPUSCULAR HEMOGLOBIN 25.9 pg (27.0-34.8); MEAN CORPUSCULAR HGB CONC 31.7 g/dL (32.4-35.8); MEAN CORPUSCULAR VOLUME 81.9 fL (80-100); MEAN PLATELET VOLUME 8.9 fL (7.4-10.4); MONOCYTES % (AUTO) 8 % (2-9); NEUTROPHILS # (AUTO) 5.86 x10^3/uL (1.8-6.8); NEUTROPHILS % (AUTO) 83 % (42-75); PLATELET COUNT 120 x10^3/uL (130-400); RED BLOOD COUNT 4.84 x10^6/uL (3.82-5.3); RED CELL DISTRIBUTION WIDTH 20.5 % (9.6-15.2)
[2017-05-03 05:24] LABS: ANION GAP 6 mmol/L (5-15); CALCIUM 8.1 mg/dL (8.5-10.1); CHLORIDE 100 mmol/L (98-107)
[2017-05-03] MEDS: LEVOTHYROXINE 125 MCG TABLET PO SCH (05:36)
[2017-05-03 07:54] VITALS: BP 108/73
[2017-05-03] MEDS: SENNA/DOCUSATE TABLET PO SCH (09:00)
[2017-05-03] MEDS: MULTIVITAMIN 1 TABLET PO SCH (09:14)
[2017-05-03] MEDS: SPIRONOLACTONE 25 MG TABLET PO SCH (09:14)
[2017-05-03] MEDS: FUROSEMIDE 20 MG/2 ML IV SCH ×2 (09:14→16:41)
[2017-05-03] MEDS: APIXABAN 2.5 MG TABLET PO SCH ×2 (09:14→21:43)
[2017-05-03] MEDS: POTASSIUM CHLORIDE 20 MEQ TAB.ER.PRT PO SCH (09:14)
[2017-05-03] MEDS: METOPROLOL TARTRATE 25 MG TABLET PO SCH ×2 (09:15→21:43)
[2017-05-03] MEDS: SODIUM CHLORIDE FLUSH 10ML SYR IVF SCH ×2 (09:15→21:44)
[2017-05-03 13:04] VITALS: BP 99/65
[2017-05-03 19:22] VITALS: BP 105/71
[2017-05-03] MEDS: ATORVASTATIN 10 MG TABLET PO SCH (21:43)
[2017-05-03] MEDS: SERTRALINE 50MG TABLET PO SCH (21:43)
[2017-05-04 03:11] VITALS: BP 124/86
[2017-05-04] MEDS: ACETAMINOPHEN 325 MG TABLET PO PRN (04:21)
[2017-05-04] MEDS: LEVOTHYROXINE 125 MCG TABLET PO SCH (04:21)
[2017-05-04 05:39] LABS: MEAN CORPUSCULAR HEMOGLOBIN 25.1 pg (27.0-34.8); MEAN CORPUSCULAR HGB CONC 30.8 g/dL (32.4-35.8); MEAN CORPUSCULAR VOLUME 81.5 fL (80-100); MEAN PLATELET VOLUME 9.1 fL (7.4-10.4); PLATELET COUNT 135 x10^3/uL (130-400); RED BLOOD COUNT 4.91 x10^6/uL (3.82-5.3); RED CELL DISTRIBUTION WIDTH 20.2 % (9.6-15.2)
[2017-05-04 05:40] LABS: CALCIUM 8.2 mg/dL (8.5-10.1); CHLORIDE 100 mmol/L (98-107)
[2017-05-04 05:44] LABS: ANION GAP 5 mmol/L (5-15); CREATININE 0.87 mg/dL (0.55-1.02)
[2017-05-04 07:01] LABS: BASOPHILS % (AUTO) 0 % (0-1); EOSINOPHILS # (AUTO) 0.02 x10^3/uL (0-0.4); EOSINOPHILS % (AUTO) 0 % (1-7); LYMPHOCYTES # (AUTO) 0.54 x10^3/uL (1-3.4); LYMPHOCYTES % (AUTO) 8 % (22-44); MD SCAN; MONOCYTES # (AUTO) 0.61 x10^3/uL (0.2-0.8); MONOCYTES % (AUTO) 9 % (2-9); NEUTROPHILS # (AUTO) 5.47 x10^3/uL (1.8-6.8); NEUTROPHILS % (AUTO) 82 % (42-75)
[2017-05-04 07:37] VITALS: BP 136/84
[2017-05-04] MEDS: FUROSEMIDE 20 MG/2 ML IV SCH (08:03)
[2017-05-04] MEDS: MULTIVITAMIN 1 TABLET PO SCH (08:03)
[2017-05-04] MEDS: APIXABAN 2.5 MG TABLET PO SCH (08:03)
[2017-05-04] MEDS: POTASSIUM CHLORIDE 20 MEQ TAB.ER.PRT PO SCH (08:03)
[2017-05-04] MEDS: SPIRONOLACTONE 25 MG TABLET PO SCH (08:03)
[2017-05-04] MEDS: SODIUM CHLORIDE FLUSH 10ML SYR IVF SCH (08:04)
[2017-05-04] MEDS: METOPROLOL TARTRATE 25 MG TABLET PO SCH (08:04)
[2017-05-04] MEDS: SENNA/DOCUSATE TABLET PO SCH (08:09)
[2017-05-04 13:36] VITALS: BP 110/71
== END 2017-05-04 16:56 | DRG 291 ==
LOC: ED 13:59 → EDIP 17:22 → 4WST 19:38
PROVIDERS: ADMIT Internal Medicine; ATTEND Internal Medicine
DX: I13.0 Hypertensive heart and chronic kidney disease with heart failure and stage 1 through stage 4 chronic kidney disease, or unspecified chronic kidney disease (principal); N17.0 Acute kidney failure with tubular necrosis; J96.90 Respiratory failure, unspecified, unspecified whether with hypoxia or hypercapnia; D68.69 Other thrombophilia; E87.1 Hypo-osmolality and hyponatremia; R17 Unspecified jaundice; I50.33 Acute on chronic diastolic (congestive) heart failure; E03.9 Hypothyroidism, unspecified; E78.5 Hyperlipidemia, unspecified; I48.2 Chronic atrial fibrillation; K21.9 Gastro-esophageal reflux disease without esophagitis; Z66 Do not resuscitate; Z79.01 Long term (current) use of anticoagulants; Z82.5 Family history of asthma and other chronic lower respiratory diseases; Z83.3 Family history of diabetes mellitus; Z86.73 Personal history of transient ischemic attack (TIA), and cerebral infarction without residual deficits; Z90.710 Acquired absence of both cervix and uterus; N18.9 Chronic kidney disease, unspecified; Z88.0 Allergy status to penicillin; Z88.2 Allergy status to sulfonamides
CPT/HCPCS: 36415; 71045; 71275; 80048; 80053; 81001; 83036; 83880; 84484; 85025; 85379; 93005; 93306; 93970; 96374; J1940; Q9967

== ENCOUNTER 2017-06-23 10:10 | Inpatient (IN) | payer MEDICARE ==
[~2017-06-23] VITALS: Ht 172.7 cm; Wt 72.3 kg
[~2017-06-23 10:10] MED LIST changes: +SERT25TA3 PO; +SPIR25TA3 PO
[2017-06-23 11:14] LABS: MEAN CORPUSCULAR HEMOGLOBIN 25.7 pg (27.0-34.8); MEAN CORPUSCULAR HGB CONC 31.6 g/dL (32.4-35.8); MEAN CORPUSCULAR VOLUME 81.1 fL (80-100); PLATELET COUNT 330 x10^3/uL (130-400); RED BLOOD COUNT 4.71 x10^6/uL (3.82-5.3); RED CELL DISTRIBUTION WIDTH 28.7 % (9.6-15.2)
[2017-06-23 11:21] LABS: ALANINE AMINOTRANSFERASE 20 U/L (12-78); ALBUMIN 2.7 g/dL (3.4-5.0); ANION GAP 9 mmol/L (5-15); CALCIUM 8.3 mg/dL (8.5-10.1); CHLORIDE 102 mmol/L (98-107); CREATININE 0.93 mg/dL (0.55-1.02)
[2017-06-23 11:23] LABS: ALKALINE PHOSPHATASE 133 U/L (45-117); TOTAL PROTEIN 6.7 g/dL (6.4-8.2)
[2017-06-23 11:28] LABS: ANISOCYTOSIS 2+; BASOPHILS % (AUTO) 0 % (0-1); EOSINOPHILS # (AUTO) 0.01 x10^3/uL (0-0.4); EOSINOPHILS % (AUTO) 0 % (1-7); LYMPHOCYTES # (AUTO) 0.44 x10^3/uL (1-3.4); LYMPHOCYTES % (AUTO) 4 % (22-44); MD MORPH REVIEW ONLY; MICROCYTOSIS 1+; MONOCYTES # (AUTO) 0.46 x10^3/uL (0.2-0.8); MONOCYTES % (AUTO) 4 % (2-9); NEUTROPHILS # (AUTO) 10.29 x10^3/uL (1.8-6.8); NEUTROPHILS % (AUTO) 92 % (42-75)
[2017-06-23 11:29] LABS: <PLATELET ESTIMATE> ADEQUATE; <PLT MORPHOLOGY> NORMAL PLT MORPH; OVALOCYTES 1+; POLYCHROMASIA 1+
[2017-06-23 11:32] LABS: ECHINOCYTES 1+; TEAR DROPS 1+
[2017-06-23 12:19] LABS: MICROSCOPIC INDICATED
[2017-06-23 12:31] LABS: CULTURE INDICATED? NO
[2017-06-23] MEDS ORDERED: SODIUM CHLORIDE 0.9% 1,000 ML IV SCH (13:48)
[2017-06-23] MEDS ORDERED: POLYETHYLENE GLYCOL 17 GM PACKET PO PRN (14:00)
[2017-06-23] MEDS ORDERED: ONDANSETRON 2MG/ML, 2ML IVPush PRN (14:00)
[2017-06-23] MEDS ORDERED: BISACODYL 10 MG SUPP PR PRN (14:00)
[2017-06-23] MEDS ORDERED: DOCUSATE 100 MG CAPSULE PO PRN (14:00)
[2017-06-23] MEDS: ACETAMINOPHEN 325 MG TABLET PO PRN ×2 (17:41→22:25)
[2017-06-23] MEDS: CEPHALEXIN 250 MG/5 ML, ORAL SUSP PO SCH ×2 (17:41→20:57)
[2017-06-23 18:44] VITALS: BP 120/78
[2017-06-23 20:00] VITALS: BP 110/73
[2017-06-23] MEDS: APIXABAN 2.5 MG TABLET PO SCH (20:57)
[2017-06-23] MEDS: METOPROLOL TARTRATE 25 MG TABLET PO SCH (20:57)
[2017-06-24 01:06] VITALS: BP 112/77
[2017-06-24] MEDS: LEVOTHYROXINE 125 MCG TABLET PO SCH (05:24)
[2017-06-24] MEDS: ACETAMINOPHEN 325 MG TABLET PO PRN ×2 (05:24→14:03)
[2017-06-24 05:25] LABS: MEAN CORPUSCULAR HEMOGLOBIN 24.9 pg (27.0-34.8); MEAN CORPUSCULAR HGB CONC 30.6 g/dL (32.4-35.8); MEAN CORPUSCULAR VOLUME 81.5 fL (80-100); MEAN PLATELET VOLUME 7.9 fL (7.4-10.4); PLATELET COUNT 362 x10^3/uL (130-400); RED CELL DISTRIBUTION WIDTH 28.4 % (9.6-15.2)
[2017-06-24 05:28] LABS: ALBUMIN 2.5 g/dL (3.4-5.0); ANION GAP 8 mmol/L (5-15); CHLORIDE 103 mmol/L (98-107)
[2017-06-24 05:40] LABS: ALANINE AMINOTRANSFERASE 19 U/L (12-78); ALKALINE PHOSPHATASE 123 U/L (45-117); BILIRUBIN,TOTAL 0.8 mg/dL (0.2-1.0); CREATININE 0.93 mg/dL (0.55-1.02); TOTAL PROTEIN 6.4 g/dL (6.4-8.2)
[2017-06-24 06:07] LABS: BASOPHILS % (AUTO) 0 % (0-1); EOSINOPHILS # (AUTO) 0.04 x10^3/uL (0-0.4); EOSINOPHILS % (AUTO) 1 % (1-7); LYMPHOCYTES # (AUTO) 0.54 x10^3/uL (1-3.4); LYMPHOCYTES % (AUTO) 7 % (22-44); MD SCAN; MONOCYTES # (AUTO) 0.55 x10^3/uL (0.2-0.8); MONOCYTES % (AUTO) 7 % (2-9); NEUTROPHILS # (AUTO) 6.43 x10^3/uL (1.8-6.8); NEUTROPHILS % (AUTO) 85 % (42-75)
[2017-06-24 06:40] VITALS: BP 122/80
[2017-06-24] MEDS: APIXABAN 2.5 MG TABLET PO SCH ×2 (10:26→20:24)
[2017-06-24] MEDS: METOPROLOL TARTRATE 25 MG TABLET PO SCH ×2 (10:26→20:24)
[2017-06-24] MEDS: MULTIVITAMIN 1 TABLET PO SCH (10:26)
[2017-06-24] MEDS: OMEPRAZOLE 20 MG CAPSULE.DR PO SCH (10:26)
[2017-06-24] MEDS: CEPHALEXIN 250 MG/5 ML, ORAL SUSP PO SCH ×2 (10:35→17:18)
[2017-06-24 14:00] VITALS: BP 143/78
[2017-06-24 19:42] VITALS: BP 111/75
[2017-06-25] MEDS: CEPHALEXIN 250 MG/5 ML, ORAL SUSP PO SCH ×2 (01:02→10:36)
[2017-06-25 02:23] VITALS: BP 135/88
[2017-06-25] MEDS: LEVOTHYROXINE 125 MCG TABLET PO SCH (05:42)
[2017-06-25 06:15] VITALS: BP 119/76
[2017-06-25] MEDS: METOPROLOL TARTRATE 25 MG TABLET PO SCH ×2 (10:36→20:59)
[2017-06-25] MEDS: OMEPRAZOLE 20 MG CAPSULE.DR PO SCH (10:36)
[2017-06-25] MEDS: APIXABAN 2.5 MG TABLET PO SCH ×2 (10:37→20:59)
[2017-06-25] MEDS: MULTIVITAMIN 1 TABLET PO SCH (10:37)
[2017-06-25 14:00] VITALS: BP 130/82
[2017-06-25] MEDS: ACETAMINOPHEN 325 MG TABLET PO PRN ×2 (14:30→21:00)
[2017-06-25 16:40] VITALS: BP 138/84
[2017-06-25 19:09] VITALS: BP 143/87
[2017-06-25] MEDS: CEFDINIR 300 MG CAPSULE PO SCH (20:59)
[2017-06-25] MEDS: LINEZOLID 600 MG TABLET PO SCH (20:59)
[2017-06-26 00:34] VITALS: BP 142/83
[2017-06-26] MEDS: LEVOTHYROXINE 125 MCG TABLET PO SCH (05:47)
[2017-06-26 06:37] LABS: ANION GAP 8 mmol/L (5-15); CALCIUM 8.9 mg/dL (8.5-10.1); CHLORIDE 101 mmol/L (98-107); CREATININE 0.62 mg/dL (0.55-1.02)
[2017-06-26 06:38] LABS: MEAN CORPUSCULAR HEMOGLOBIN 25.5 pg (27.0-34.8); MEAN CORPUSCULAR HGB CONC 31.3 g/dL (32.4-35.8); MEAN CORPUSCULAR VOLUME 81.4 fL (80-100); MEAN PLATELET VOLUME 7.6 fL (7.4-10.4); PLATELET COUNT 395 x10^3/uL (130-400); RED BLOOD COUNT 4.75 x10^6/uL (3.82-5.3); RED CELL DISTRIBUTION WIDTH 28.6 % (9.6-15.2)
[2017-06-26 07:02] LABS: BASOPHILS # (AUTO) 0.02 x10^3/uL (0-0.1); BASOPHILS % (AUTO) 0 % (0-1); EOSINOPHILS # (AUTO) 0.03 x10^3/uL (0-0.4); EOSINOPHILS % (AUTO) 0 % (1-7); LYMPHOCYTES # (AUTO) 0.81 x10^3/uL (1-3.4); LYMPHOCYTES % (AUTO) 13 % (22-44); MD SCAN; MONOCYTES # (AUTO) 0.65 x10^3/uL (0.2-0.8); MONOCYTES % (AUTO) 10 % (2-9); NEUTROPHILS # (AUTO) 4.86 x10^3/uL (1.8-6.8); NEUTROPHILS % (AUTO) 76 % (42-75)
[2017-06-26 07:12] VITALS: BP 149/95
[2017-06-26] MEDS: LINEZOLID 600 MG TABLET PO SCH ×2 (07:43→20:41)
[2017-06-26] MEDS: METOPROLOL TARTRATE 25 MG TABLET PO SCH ×2 (07:43→20:41)
[2017-06-26] MEDS: OMEPRAZOLE 20 MG CAPSULE.DR PO SCH (07:43)
[2017-06-26] MEDS: MULTIVITAMIN 1 TABLET PO SCH (07:43)
[2017-06-26] MEDS: CEFDINIR 300 MG CAPSULE PO SCH (07:43)
[2017-06-26] MEDS: APIXABAN 2.5 MG TABLET PO SCH ×2 (07:43→20:41)
[2017-06-26] MEDS: ACETAMINOPHEN 325 MG TABLET PO PRN (12:39)
[2017-06-26] MEDS: MEROPENEM 1 GM in SODIUM CHLORIDE 0.9% 100 ML IV SCH ×2 (12:39→20:41)
[2017-06-26 13:03] VITALS: BP 153/88
[2017-06-26] MEDS: FUROSEMIDE 40 MG TABLET PO SCH (13:45)
[2017-06-26 15:00] LABS: HCT (SEDRATE) 38.8 % (34.6-47.8)
[2017-06-26 18:54] VITALS: BP 133/84
[2017-06-27 00:54] VITALS: BP 128/86
[2017-06-27] MEDS: MEROPENEM 1 GM in SODIUM CHLORIDE 0.9% 100 ML IV SCH ×3 (04:08→20:36)
[2017-06-27] MEDS: LEVOTHYROXINE 125 MCG TABLET PO SCH (06:05)
[2017-06-27] MEDS: MULTIVITAMIN 1 TABLET PO SCH (09:28)
[2017-06-27] MEDS: FUROSEMIDE 40 MG TABLET PO SCH (09:28)
[2017-06-27] MEDS: LINEZOLID 600 MG TABLET PO SCH ×2 (09:28→20:36)
[2017-06-27] MEDS: APIXABAN 2.5 MG TABLET PO SCH ×2 (09:28→20:36)
[2017-06-27] MEDS: OMEPRAZOLE 20 MG CAPSULE.DR PO SCH (09:28)
[2017-06-27] MEDS: METOPROLOL TARTRATE 25 MG TABLET PO SCH ×2 (09:29→20:36)
[2017-06-27 09:55] VITALS: BP 128/78
[2017-06-27] MEDS: ACETAMINOPHEN 325 MG TABLET PO PRN ×2 (11:48→20:36)
[2017-06-27 15:46] VITALS: BP 107/77
[2017-06-27 19:20] VITALS: BP 117/74
[2017-06-28 01:14] VITALS: BP 112/72
[2017-06-28] MEDS: MEROPENEM 1 GM in SODIUM CHLORIDE 0.9% 100 ML IV SCH ×2 (04:08→11:48)
[2017-06-28] MEDS: LEVOTHYROXINE 125 MCG TABLET PO SCH (06:19)
[2017-06-28] MEDS: MULTIVITAMIN 1 TABLET PO SCH (08:33)
[2017-06-28] MEDS: FUROSEMIDE 40 MG TABLET PO SCH (08:33)
[2017-06-28] MEDS: OMEPRAZOLE 20 MG CAPSULE.DR PO SCH (08:33)
[2017-06-28] MEDS: LINEZOLID 600 MG TABLET PO SCH (08:33)
[2017-06-28] MEDS: APIXABAN 2.5 MG TABLET PO SCH (08:33)
[2017-06-28] MEDS: METOPROLOL TARTRATE 25 MG TABLET PO SCH (08:34)
[2017-06-28 08:50] VITALS: BP 144/83
[2017-06-28 09:53] LABS: ANION GAP 7 mmol/L (5-15); CALCIUM 8.3 mg/dL (8.5-10.1); CHLORIDE 100 mmol/L (98-107); CREATININE 0.79 mg/dL (0.55-1.02)
[2017-06-28 13:49] VITALS: BP 114/76
[2017-06-28] MEDS ORDERED: Neosporin Oint, 15GM TP (13:56)
[2017-06-28] MEDS ORDERED: NEOSPORIN OINT, 15GM TP SCH (16:00)
== END 2017-06-28 16:56 | DRG 314 ==
LOC: ED 12:56 → EDIP 12:57 → ED 13:22 → 3NE 16:05
PROVIDERS: ADMIT Hospitalist; ATTEND Hospitalist
DX: I95.9 Hypotension, unspecified (principal); E43 Unspecified severe protein-calorie malnutrition; D68.69 Other thrombophilia; L03.116 Cellulitis of left lower limb; E86.0 Dehydration; I48.2 Chronic atrial fibrillation; I11.0 Hypertensive heart disease with heart failure; I50.32 Chronic diastolic (congestive) heart failure; J98.11 Atelectasis; W18.30XA Fall on same level, unspecified, initial encounter; E03.9 Hypothyroidism, unspecified; E78.5 Hyperlipidemia, unspecified; I73.9 Peripheral vascular disease, unspecified; K21.9 Gastro-esophageal reflux disease without esophagitis; M43.12 Spondylolisthesis, cervical region; R62.7 Adult failure to thrive; Z66 Do not resuscitate; Z79.01 Long term (current) use of anticoagulants; Z82.5 Family history of asthma and other chronic lower respiratory diseases; Z83.3 Family history of diabetes mellitus; Z86.73 Personal history of transient ischemic attack (TIA), and cerebral infarction without residual deficits; Z90.710 Acquired absence of both cervix and uterus; Z68.24 Body mass index [BMI] 24.0-24.9, adult; Y93.89 Activity, other specified; Y92.89 Other specified places as the place of occurrence of the external cause; Y99.8 Other external cause status
CPT/HCPCS: 36415; 70450; 71045; 72125; 80048; 80053; 81001; 83735; 84100; 84145; 84443; 85025; 85651; 86140; 87040; 87070; 87077; 87186; 87205; 93005; 99285; J2185; J7030